=== PATIENT | male | born 1995 | race Hispanic/Latino ===

== ENCOUNTER 2022-11-01 20:10 | Emergency (ER) | payer OTHER ==
[~2022-11-01] VITALS: Ht 154.9 cm; Wt 82.6 kg
[2022-11-01] MEDS ORDERED: IBUP-2070 PO (23:51)
[2022-11-02] MEDS ORDERED: KETOROLAC 30MG VIAL (30MG/ML) IM ONE
[2022-11-02 03:57] VITALS: BP 119/73
[2022-11-02] MEDS ORDERED: IBUP-2071 PO (04:10)
== END 2022-11-02 04:20 | disposition home or self-care (01) ==
LOC: EDH 20:10
DX: M25.462 Effusion, left knee (principal); Z79.1 Long term (current) use of non-steroidal anti-inflammatories (NSAID)
CPT/HCPCS: 99283; 29505; 73562; 96372; J1885